=== PATIENT | female | born 1945 | race Caucasian/White ===

== ENCOUNTER 2021-11-18 12:38 | Emergency (ER) | payer MEDICARE ==
[2021-11-18] MEDS ORDERED: Sodium Chloride 0.9% 1,000 ML IV ONE (13:06)
== END 2021-11-18 15:22 | disposition home or self-care (01) ==
LOC: LB.ED 12:38
DX: E87.1 Hypo-osmolality and hyponatremia (principal); E87.8 Other disorders of electrolyte and fluid balance, not elsewhere classified; I10 Essential (primary) hypertension; Z79.899 Other long term (current) drug therapy
CPT/HCPCS: 36415; 71045; 80053; 81001; 82947; 83605; 83880; 84484; 85025; 93005; 99284; J7030

== ENCOUNTER 2021-11-23 13:18 | Inpatient (IN) | payer MEDICARE ==
[2021-11-23] MEDS: Sodium Chloride 0.9% 1,000 ML IV SCH ×2 (14:00→20:16)
[2021-11-23] MEDS ORDERED: Ondansetron 4 MG Tab.DIS PO ONE (14:12)
[2021-11-23] MEDS ORDERED: Acetaminophen 500 MG Tab PO PRN (14:13)
[2021-11-23] MEDS ORDERED: Acetaminophen 500 MG Tab ONE (14:16)
[2021-11-23] MEDS ORDERED: Ondansetron 4 MG Tab.DIS ONE ×2 (14:16→21:00)
[2021-11-23] MEDS ORDERED: Potassium Chloride 10% 20 MEQ/15 ML Soln 15 ML UD Cup PO ONE (18:21)
[2021-11-23] MEDS ORDERED: traZODone 100 MG Tab PO PRN (18:30)
[2021-11-23] MEDS ORDERED: Non-Formulary Medication 1 Each (Triamcinolone Acetonide [Nasacort] 10.8 ML Spray) NS SCH (20:00)
[2021-11-23] MEDS ORDERED: traZODone 100 MG Tab PO SCH (20:00)
[2021-11-23] MEDS ORDERED: Ondansetron 4 MG Tab.DIS PO PRN (20:15)
[2021-11-23] MEDS: Zolpidem 5 MG Tab PO PRN (21:04)
[2021-11-24] MEDS: Sodium Chloride 0.9% 1,000 ML IV SCH (03:17)
[2021-11-24] MEDS: Levothyroxine 50 MCG Tab PO SCH (07:19)
[2021-11-24] MEDS ORDERED: Meclizine 12.5 MG Tab PO ONE (10:35)
[2021-11-24] MEDS ORDERED: Sodium Chloride 0.9% 1,000 ML IV SCH (19:30)
[2021-11-24] MEDS: Meclizine 12.5 MG Tab PO SCH (21:07)
[2021-11-24] MEDS: Zolpidem 5 MG Tab PO PRN (21:07)
[2021-11-25] MEDS: Meclizine 12.5 MG Tab PO SCH ×3 (07:42→16:00)
[2021-11-25] MEDS: Levothyroxine 50 MCG Tab PO SCH (07:42)
[2021-11-25] MEDS: Sodium Chloride 0.9% 1,000 ML IV SCH (09:00)
[2021-11-25] MEDS ORDERED: Polyethylene Glycol 3350 Powder 17 GM Packet PO ONE (10:42)
[2021-11-25] MEDS ORDERED: Polyethylene Glycol 3350 Powder 17 GM Packet ONE ×2 (12:58→19:07)
[2021-11-25] MEDS ORDERED: Sodium Chloride 0.9% 1,000 ML IV SCH (17:45)
== END 2021-11-25 21:54 | disposition home or self-care (01) | DRG 641 ==
LOC: LB.MS 13:18 → UNDOADMIN 13:51
PROVIDERS: ADMIT Family Medicine; ATTEND Family Medicine
DX: E87.1 Hypo-osmolality and hyponatremia (principal); F41.9 Anxiety disorder, unspecified; R53.83 Other fatigue; R25.1 Tremor, unspecified; E87.8 Other disorders of electrolyte and fluid balance, not elsewhere classified; R11.0 Nausea; I10 Essential (primary) hypertension; E87.6 Hypokalemia; R42 Dizziness and giddiness; Z90.710 Acquired absence of both cervix and uterus; Z90.49 Acquired absence of other specified parts of digestive tract
CPT/HCPCS: 36415; 70450; 80048; 84132; 84295; A9270-GY; J7030; Q0162

== ENCOUNTER 2022-05-24 17:20 | Emergency (ER) | payer MEDICARE ==
[2022-05-24] MEDS: cloNIDine 0.1 MG Tab PO ONE (18:08)
[2022-05-24] MEDS: Labetalol 100 MG/20 ML MDV IVPUSH ONE (18:08)
[2022-05-24] MEDS: Spironolactone 25 MG Tab PO ONE (19:45)
== END 2022-05-24 20:03 | disposition home or self-care (01) ==
LOC: LB.ED 17:20
DX: H11.32 Conjunctival hemorrhage, left eye (principal); I15.8 Other secondary hypertension; E03.9 Hypothyroidism, unspecified; Z79.899 Other long term (current) drug therapy
CPT/HCPCS: 36415; 80048; 85027; 96374; 99282; A9270

== ENCOUNTER 2023-01-16 10:10 | Emergency (ER) | payer MEDICARE ==
[2023-01-16] MEDS ORDERED: Sodium Chloride 0.9% 1,000 ML IV ONE (10:21)
[2023-01-16 10:35] LABS: BASOPHILS ABSOLUTE AUTO 0.03 K/uL (0.02-0.10); BASOPHILS PERCENT AUTO 0.4 % (0.0-0.5); EOSINOPHILS ABSOLUTE AUTO 0.09 K/uL (0.04-0.40); EOSINOPHILS PERCENT AUTO 1.2 % (1.0-5.0); HEMATOCRIT 42.2 % (37.0-47.0); HEMOGLOBIN 14.3 g/dL (11.5-16.5); LYMPHOCYTES PERCENT AUTO 48.9 % (20.0-40.0); MEAN CORPUSCULAR HEMOGLOBIN 32.8 pg (27.0-32.0); MEAN CORPUSCULAR HGB CONC 33.9 g/dL (31.0-35.0); MEAN CORPUSCULAR VOLUME 97 fL (76-96); MEAN PLATELET VOLUME 9.8 fL (6.0-10.0); MONOCYTES ABSOLUTE AUTO 0.61 K/uL (0.20-0.80); MONOCYTES PERCENT AUTO 8.3 % (3.0-10.0); NEUTROPHILS ABSOLUTE AUTO 3.03 K/uL (2.00-7.50); NEUTROPHILS PERCENT AUTO 41.2 % (45.0-70.0); PLATELET COUNT,PLT 294 K/uL (150-500); RED BLOOD CELL COUNT 4.36 M/uL (3.80-5.80); RED CELL DISTRIBUTION WIDTH 12.1 % (11.0-16.0); WHITE BLOOD CELL COUNT,WBC 7.4 K/uL (4.0-11.0)
[2023-01-16 10:58] LABS: PROTHROMBIN TIME 9.9 sec (9.0-11.5)
[2023-01-16 11:12] LABS: A/G RATIO 1.3 (0.8-2.0); ALANINE AMINOTRANSFERASE,ALT 24 U/L (12-78); ALBUMIN 4.3 g/dL (3.4-5.0); ALKALINE PHOSPHATASE 77 U/L (46-116); ANION GAP 14.3 mmol/L (5.0-15.0); ASPARTATE AMNIOTRANSFERASE,AST 18 U/L (15-37); BILIRUBIN TOTAL 0.5 mg/dL (0.0-1.0); BLOOD UREA NITROGEN,BUN 5 mg/dL (8-26); BUN/CREATININE RATIO 6.2 (6-25); CALCIUM 10.3 mg/dL (8.5-10.1); CARBON DIOXIDE,CO2 28.7 mmol/L (21.0-32.0); CHLORIDE,CL 100 mmol/L (98-107); CREATININE 0.81 mg/dL (0.55-1.02); ESTIMATED GFR 74 mL/min (>60); GLUCOSE RANDOM 97 mg/dL (74-100); PROTEIN TOTAL,TP 7.6 g/dL (6.4-8.2); SODIUM,NA 139 mmol/L (136-145); TSH ULTRASENSITIVE 3.343 uIU/mL (0.358-3.740)
[2023-01-16 11:26] LABS: APPEARANCE,URINE CLEAR (CLEAR); BILIRUBIN,URINE NEGATIVE (NEGATIVE); COLOR,URINE YELLOW; GLUCOSE,URINE NEGATIVE (NEGATIVE); KETONES,URINE NEGATIVE (NEGATIVE); LEUKOCYTE ESTERASE,URINE SMALL (NEGATIVE); NITRITE,URINE NEGATIVE (NEGATIVE); OCCULT BLOOD,URINE TRACE-INTACT (NEGATIVE); PH,URINE 7.5 (5.0-8.0); PROTEIN,URINE NEGATIVE (NEGATIVE); UROBILINOGEN,URINE 0.2 E.U./dL (0.2-1.0)
[2023-01-16 11:38] LABS: RBC,URINE 0-5 /HPF; SQUAMOUS EPITHELIAL CELLS,UR FEW /HPF
[2023-01-16] MEDS ORDERED: Sodium Chloride 0.9% 10 ML Syringe FLUSH PRN (13:25)
== END 2023-01-16 12:05 | disposition home or self-care (01) ==
LOC: LB.ED 10:10
DX: F43.9 Reaction to severe stress, unspecified (principal); E03.9 Hypothyroidism, unspecified; I10 Essential (primary) hypertension; Z79.899 Other long term (current) drug therapy
CPT/HCPCS: 36415; 70450; 71250; 80053; 81001; 83605; 84443; 84484; 85025; 85610; 85730; 93005; 96360; 99285; J7030

== ENCOUNTER 2023-11-01 19:37 | Emergency (ER) | payer MEDICARE ==
[2023-11-01 21:23] LABS: HEMATOCRIT 43.5 % (37.0-47.0); HEMOGLOBIN 14.8 g/dL (11.5-16.5); MEAN CORPUSCULAR HEMOGLOBIN 32.8 pg (27.0-32.0); MEAN PLATELET VOLUME 9.3 fL (6.0-10.0); RED BLOOD CELL COUNT 4.51 M/uL (3.80-5.80); RED CELL DISTRIBUTION WIDTH 12.2 % (11.0-16.0)
[2023-11-01 21:30] LABS: ANION GAP 12.9 mmol/L (5.0-15.0); BUN/CREATININE RATIO 13.3 (6-25); CALCIUM 10.8 mg/dL (8.5-10.1); CARBON DIOXIDE,CO2 28.7 mmol/L (21.0-32.0); CREATININE 0.75 mg/dL (0.55-1.02); EST CRCL DRUG DOSING (CG) 56.75 mL/min; POTASSIUM,K 3.6 mmol/L (3.5-5.1)
== END 2023-11-01 22:15 | disposition home or self-care (01) ==
LOC: LB.ED 19:37
DX: F41.9 Anxiety disorder, unspecified (principal); I10 Essential (primary) hypertension; E03.9 Hypothyroidism, unspecified; Z90.710 Acquired absence of both cervix and uterus; Z79.899 Other long term (current) drug therapy
CPT/HCPCS: 36415; 80048; 84484; 85027; 93005; 93010; 99283